=== PATIENT | female | born 1945 | race Caucasian/White ===

== ENCOUNTER 2016-12-01 12:40 | Emergency (ER) | payer OTHER ==
[2016-12-01 12:49] VITALS: TEMP 98.6
--- NOTE | 2016-12-01 13:06 | EDPHY ---
H & P Time Seen by Provider: 12/01/16 12:52 HPI/ROS: CHIEF COMPLAINT: Lower extremity edema HISTORY OF PRESENT ILLNESS: This patient is a 71 year old woman with HTN and peripheral edema presenting with 3-4 days of increased bilateral lower extremity edema. The patient has been traveling in the car from [place] 2 days ago and ran out of her HCTZ 5 days ago. She was first prescribed the HCTZ two months ago. She typically has worse edema in the left leg compared to the right because of left knee replacement and venous stasis. The HCTZ improved her lower extremity edema in the past. Requesting Lasix because it usually works faster. Additionally, the patient has a longstanding history of shortness of breath, which has been somewhat worse the last 2-3 days. She reports associated 13 pound weight gain. Symptoms are mild-moderate in severity. She denies chest pain. REVIEW OF SYSTEMS: Constitutional: No fever, no chills Eyes: No visual changes ENT: sore throat the last few days Respiratory: No cough, worsening shortness of breath Cardiac: No chest pain Gastrointestinal: No nausea, no vomiting, no abdominal pain Genitourinary: No hematuria, no dysuria Musculoskeletal: Bilateral lower extremity edema. 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 [place] Smoking Status: Never smoked Physical Exam: General Appearance: Alert, obese, no distress Eyes: Pupils equal and round, no conjunctival pallor or injection ENT, Mouth: Mucous membranes moist, mild pharyngeal erythema Neck: Normal inspection Respiratory: Lungs are clear to auscultation Cardiovascular: Regular rate and rhythm Gastrointestinal: Abdomen is soft and non- tender Neurological: A&O, nonfocal, normal gait Skin: Warm and dry, no rash Extremities: Nontender, 3+ bilateral lower extremity edema Psychiatric: Mood and affect normal Constitutional: Initial Vital Signs Temperature (C) 37.0 C 12/01/16 12:45 Heart Rate 95 12/01/16 12:45 Respiratory Rate 20 12/01/16 12:45 Blood Pressure 146/82 H 12/01/16 12:45 O2 Sat (%) 95 12/01/16 12:45 O2 Delivery Mode Room Air Allergies/Adverse Reactions: Penicillins Allergy (Severe, Verified 01/20/16 19:39) Anaphylaxis alcohol [From Mastisol Adhesive] Allergy (Intermediate, Verified 01/20/16 19:39) Rash cefuroxime axetil [From Ceftin] Allergy (Intermediate, Verified 01/20/16 19:39) Hives gum mastic [From Mastisol Adhesive] Allergy (Intermediate, Verified 01/20/16 19: 39) Rash methyl salicylate [From Mastisol Adhesive] Allergy (Intermediate, Verified 01/19 19:39) Rash storax [From Mastisol Adhesive] Allergy (Intermediate, Verified 01/20/16 19:39) Rash fentanyl [Fentanyl] Adverse Reaction (Intermediate, Verified 05/13/15 14:46) Other-Enter Comments TERAMYCIN Allergy (Severe, Uncoded 05/13/15 14:46) Anaphylaxis Home Medications: Medication Instructions Recorded Aspirin [Aspirin 81mg (OTC)] 162 mg PO DAILY 05/15/13 DULoxetine [Cymbalta] 120 mg PO DAILY 05/15/13 Fluticasone Propionate [Flovent 2 puffs IH BID 05/15/13 Hfa] Lansoprazole [Prevacid] 15 mg PO 05/15/13 Levothyroxine [Synthroid] 175 mcg PO DAILY06 05/15/13 Lisinopril/Hctz 20/12.5MG 1 ea PO DAILY 05/15/13 [Zestoretic/Prinzide] Simvastatin 10 mg PO 05/15/13 Warfarin Sodium [Coumadin 5MG (RX)] 5 mg PO DAILY 05/15/13 buPROPion SR [Wellbutrin Sr] 150 mg PO 05/15/13 Docusate Sodium [Colace 100 MG (*)] 100 mg PO BID #30 cap 01/14/14 CeleBREX 05/13/15 Proair Hfa Icu (RX) 05/13/15 traMADOL 05/13/15 Furosemide [Lasix 40 MG (*)] 40 mg PO DAILY #4 tab 12/01/16 Potassium Cl [Klor-Con 20 meq (*)] 20 meq PO DAILY #4 tab 12/01/16 Medical Decision Making ED Course/Re-evaluation: This patient presents with lower extremity edema and shortness of breath, onset after running out of HCTZ this week. There is bilateral 2+ lower extremity edema on exam. I discussed diuresis with Lasix and refilling her prescription for HCTZ. However, the patient is confused about her medications and does not know what dose of HCTZ she takes. Instead, I will prescribe a short course of Lasix. I have advised for the patient to follow up with Dr. Box for re-check and to refill her HCTZ prescription. ISTAT ordered to check electrolytes. I do not feel that further testing is indicated. ISTAT potassium is 3.9. Differential Diagnosis: includes though not limited to hypoxia, pulm edema, ACS, ARF, DVT - Data Points Medications Given: Discontinued Medications Furosemide (Lasix) 40 mg PO EDNOW ONE Stop: 12/01/16 13:10 Last Admin: 12/01/16 13:22 Dose: 40 mg Departure - Departure Disposition: Home, Routine, Self-Care Clinical Impression: Edema of both legs Condition: Good Instructions: Leg Edema (ED) Additional Instructions: Take the Lasix as prescribed. Follow up with Dr. Box this week. He can refill your HCTZ prescription. Return for worsening symptoms, increased edema, shortness of breath, chest pain, or other concerns. Referrals: Choco Box MD [Medical Doctor] - As per Instructions Prescriptions: Furosemide [Lasix 40 MG (*)] 40 mg PO DAILY #4 tab Potassium Cl [Klor-Con 20 meq (*)] 20 meq PO DAILY #4 tab Report Scribed for: Margie Thompson Report Scribed by: Patricia Branham Date of Report: 12/01/16 Time of Report: 12:58 Physician Review and Approval Statement: 12/01/16 12:59 Portions of this note were transcribed by a medical art therapist. I personally performed a history, physical exam, medical decision making, and confirmed accuracy of information the transcribed note.
[2016-12-01] MEDS ORDERED: FUROSEMIDE 40 MG TAB PO ONE (13:09)
[2016-12-01] MEDS ORDERED: FUROSEMIDE 40 MG TAB ONE (13:20)
[2016-12-01 13:56] VITALS: BP 161/79; PULSE 92; RESP 18; O2SAT 92
== END 2016-12-01 13:57 | disposition home or self-care (01) ==
DX: R60.0 Localized edema (principal); I10 Essential (primary) hypertension; Z79.82 Long term (current) use of aspirin; Z79.01 Long term (current) use of anticoagulants
CPT/HCPCS: 82947-QW

== ENCOUNTER → 2016-12-13 | Outpatient (CLI) | payer OTHER | LOC: BHFA 13:30 | PROVIDERS: ATTEND Internal Medicine Cardiovascular Disease | DX: I25.10 Atherosclerotic heart disease of native coronary artery without angina pectoris (principal) | CPT/HCPCS: 78452; 93017; A9500; J2785 ==

== ENCOUNTER → 2017-01-08 | Outpatient (CLI) | payer OTHER | LOC: FCPNEURO 23:12 | PROVIDERS: ATTEND Psychiatry & Neurology Sleep Medicine | DX: G47.33 Obstructive sleep apnea (adult) (pediatric) (principal) ==

== ENCOUNTER 2017-04-15 16:07 | Observation (INO) | payer OTHER ==
[2017-04-15] MEDS ORDERED: ASPIRIN 81 MG CHEWABLE TAB PO ONE (16:23)
[2017-04-15] MEDS ORDERED: ASPIRIN 81 MG CHEWABLE TAB ONE (16:26)
[2017-04-15] MEDS ORDERED: NS 1,000 ML IV ONE (16:38)
[2017-04-15] MEDS ORDERED: NITROGLYCERIN 0.4 MG BTL SL ONE (16:42)
[2017-04-15] MEDS: NITROGLYCERIN 0.4 MG BTL SL PRN ×3 (16:42→17:02)
[2017-04-15 16:45] LABS: % IMMATURE GRANULYOCYTES 0.1 % (0.0-1.1); ABSOLUTE IMMATURE GRANULOCYTES 0.01 10^3/uL (0.00-0.10); ADD DIFF? NO; ADD MORPH? NO; ADD SCAN? NO; ATYPICAL LYMPHOCYTE FLAG 0 (0-99); FRAGMENT RBC FLAG 0 (0-99); HEMATOCRIT 47.5 % (38.0-47.0); HEMOGLOBIN 15.8 g/dL (12.6-16.3); LEFT SHIFT FLG 0 (0-99); LIPEMIA HEMOLYSIS FLAG 80 (0-99); MEAN CELL HEMOGLOBIN 29.6 pg (27.9-34.1); MEAN CELL HEMOGLOBIN CONCENTR. 33.3 g/dL (32.4-36.7); MEAN PLATELET VOLUME 11.3 fL (8.7-11.7); PLATELET CLUMPS FLAG 0 (0-99); PLATELET COUNT 295 10^3/uL (150-400); RED BLOOD CELL COUNT 5.34 10^6/uL (4.18-5.33); RED CELL DISTRIBUTION WIDTH 13.4 % (11.5-15.2)
[2017-04-15 16:54] LABS: INR 2.84 (0.83-1.16); PROTIME(PATIENT) 29.7 SEC (12.0-15.0)
[2017-04-15 16:55] LABS: APTT 46.1 SEC (23.0-38.0)
--- NOTE | 2017-04-15 16:55 | EDPHY ---
H & P Stated Complaint: chest pain since this am, back pain Time Seen by Provider: 04/15/17 16:22 HPI/ROS: This patient was brought in by her by private vehicle for chest pain. She explains that for the past 2 weeks she has had chest pain with exertion while walking associated with dyspnea on exertion. However she has had no sustained episodes of chest pain until today starting at mid morning- approximately 6 hours prior to arrival onset at rest substernal ache 2 to 3/10 currently 5/10 at peak intensity associated with back pain that is currently 5/ 10. Prior to the past 2 weeks she has never experienced this chest pain before. She states that it feels differently than the pleuritic pain she had from her pulmonary embolism. No pleuritic component to this pain. No clear exacerbating or alleviating factors for today's pain. She tried a heating pad on her back without change in the pain and came in for evaluation. She has more dyspnea on exertion than usual today but no dyspnea at rest. ROS: Constitutional: No fevers or chills. She does have some fatigue. HEENT: She has had occasional right parietal headaches over the past 2 weeks but does not have 1 currently. She states he has had except mild. Pulmonary: As per HPI. No coughing. No pleuritic pain. Cardiovascular: No heart palpitations. No lower extremity swelling. Endocrine: No diaphoresis. No polyps your or polydipsia. GI: No nausea vomiting or abdominal pain. : No complaints Integumentary: No rash pallor Neuro: No numbness tingling or focal weakness Complete review of symptoms is otherwise negative. Source: Patient Exam Limitations: No limitations - Personal History Tetanus Vaccine Date: within 10 years - Medical/Surgical History Hx Asthma: Yes Hx Chronic Respiratory Disease: No Hx Diabetes: No Hx Cardiac Disease: Yes Hx Renal Disease: No Hx Cirrhosis: No Hx Alcoholism: No Hx HIV/AIDS: No Hx Splenectomy or Spleen Trauma: No Other PMH: diverticulitis, high cholesterol, blood thinning disorder (factor V leiden), depression, HTN, left knee replacement, gallbladder removal, appendectomy, hysterectomy, sweat gland removal, tonsilectomy, Left leg DVT, bilateral PE, hypothyroidism, heart palpitations, gastric bipass March 2017, sleep apnea - Family History Significant Family History: Heart disease (Patient's mother of an SD at age 63 and her father of an SD at age 58.) - Social History Smoking Status: Never smoked Alcohol Use: Rarely Drug Use: None - Physical Exam Exam: Vital signs are notable for mild hypoxia ranging from 90s 93% on room air. Other vitals are normal. General Appearance: Pleasant obese 72-year-old female Alert, no distress. Eyes: Pupils equal and round no pallor or injection. ENT, Mouth: Mucous membranes moist. Respiratory: There are no retractions, lungs are clear to auscultation. Cardiovascular: Regular rate and rhythm with 3/6 holosystolic murmur. No JVD. No peripheral edema. Patient does have right leg tenderness-mild with no associated swelling. Gastrointestinal: Obese, Abdomen is soft and nontender, no masses, bowel sounds normal. Back: Patient has mild right CVA tenderness versus right muscular lumbar tenderness although she admits that palpation to the area does not entirely reproduces her symptoms. Neurological: GCS 15 with no focal deficits. Skin: Warm and dry, no rashes. Musculoskeletal: Neck is supple nontender. Extremities are symmetrical, full range of motion. Psychiatric: Mood and affect normal. DIFFERENTIAL DIAGNOSIS: After history and physical exam differential diagnosis was considered for SD, acute coronary syndrome, GERD with esophageal spasm, pulmonary embolism, pneumonia, pneumothorax, aortic dissection, aortic aneurysm , musculoskeletal pain, GERD Constitutional: Initial Vital Signs Temperature (C) 36.5 C 04/15/17 16:20 Heart Rate 95 04/15/17 16:20 Respiratory Rate 18 04/15/17 16:20 Blood Pressure 118/69 04/15/17 16:20 O2 Sat (%) 93 04/15/17 16:20 O2 Delivery Mode Room Air O2 (L/minute) 2 Allergies/Adverse Reactions: Penicillins Allergy (Severe, Verified 04/15/17 16:24) Anaphylaxis alcohol [From Mastisol Adhesive] Allergy (Intermediate, Verified 04/15/17 16:24) Rash cefuroxime axetil [From Ceftin] Allergy (Intermediate, Verified 04/15/17 16:24) Hives gum mastic [From Mastisol Adhesive] Allergy (Intermediate, Verified 04/15/17 16: 24) Rash methyl salicylate [From Mastisol Adhesive] Allergy (Intermediate, Verified 04/15 16:24) Rash storax [From Mastisol Adhesive] Allergy (Intermediate, Verified 04/15/17 16:24) Rash fentanyl [Fentanyl] Adverse Reaction (Intermediate, Verified 04/15/17 16:24) Other-Enter Comments TERAMYCIN Allergy (Severe, Uncoded 04/15/17 16:24) Anaphylaxis Home Medications: Medication Instructions Recorded Aspirin [Aspirin 81mg (OTC)] 162 mg PO DAILY 05/15/13 DULoxetine [Cymbalta] 120 mg PO DAILY 05/15/13 Levothyroxine [Synthroid] 175 mcg PO DAILY06 05/15/13 Lisinopril/Hctz 20/12.5MG 1 ea PO DAILY 05/15/13 [Zestoretic/Prinzide] Simvastatin 10 mg PO 05/15/13 Warfarin Sodium [Coumadin 5MG (RX)] 5 mg PO DAILY 05/15/13 buPROPion SR [Wellbutrin Sr] 150 mg PO 05/15/13 Docusate Sodium [Colace 100 MG (*)] 100 mg PO BID #30 cap 01/14/14 CeleBREX 05/13/15 Proair Hfa Icu (RX) 05/13/15 traMADOL 05/13/15 Medical Decision Making - Diagnostics EKG Interpretation: 12 lead EKG performed at 4:16 p.m. reveals sinus rhythm at 96 with a left bundle branch block. Intervals: P R of 192, QRS of 148, QTC of 501 [place]: P of 59, QRS of-14, T of 123 overall assessment sinus rhythm with left bundle branch block. When comparing this to an EKG dated January 20, 2016 the patient is noted to have a left bundle branch block at that time as well. I do not appreciate significant interval change from the prior EKG A repeat EKG was performed at 5:44 p.m.-indication resolution chest pain with nitroglycerin, evaluate for dynamic change from 1st EKG Sinus rhythm at 84 Intervals: P R of 2 4, QRS of 140, QTC of 507 [place]: P of 64, QRS of-15, T of 96 Overall assessment: Sinus rhythm with left bundle branch block, no dynamic changes appreciated from 1st EKG Imaging Results: Imaging Impressions Chest X-Ray 04/15/17 17:07 Impression: Negative. ED Course/Re-evaluation: IV, supplemental on nasal cannula O2 for O2 sat at around 90% during my exam with improvement to the low to mid 90s. Aspirin 241 to supplement the baby aspirin she took at home SL nitroglycerin with improvement in her chest discomfort - after 3 similar nitroglycerines chest pain and back pain resolved. On the 3rd some nitroglycerin she became hypotensive to 80 systolic but was not symptomatic and this reversed quickly with normal saline bolus. 0.5 inch nitropaste applied the patient remained stable in free of chest pain for the duration of her course. I spoke with Dr. Yuliya Gongora-deaf interpreter reconstructive dentist for [facility] at 1755 regarding this patient and she agrees with plan for admission. They will consult. I spoke with Dr. Madonna Rogel-hospitalist at 6:00 p.m. who accepts this patient for admission to [facility] Patient developed a different chest discomfort while remaining stable with vital signs described as acid reflux sensation treated with Maalox and Levsin with improvement. With 0.5 inch nitropaste her systolic pressure was in the 90s so we DC the pace given resolution of her chest pain. Her systolic pressure improved to the low 100s after the pace with the seed in she had no further recurrent symptoms while here in the emergency department. Discussion: Patient presents with chest pain concerning for potential angina with risk factors of strong family history of coronary disease and age with chest pain and dyspnea on exertion improved with nitroglycerin. 1st troponin is normal. She is therapeutic with an INR of 2.8 to not think she has a PE nor did she have symptoms at are consistent with her prior PEs. No pneumonia or pneumothorax on her chest x-ray, no other concerning findings. The time of transfer patient is stable for admission for serial cardiac enzymes and cardiology consult. - Data Points Laboratory Results: Laboratory Results 04/15/17 16:24 04/15/17 16:24 04/15/17 04/15/17 04/15/17 17:35 16:24 16:24 WBC RBC Hgb Hct MCV MCH MCHC RDW Plt Count MPV Neut % (Auto) Lymph % (Auto) [place] % (Auto) Eos % (Auto) Baso % (Auto) Nucleat RBC Rel Count Absolute Neuts (auto) Absolute Lymphs (auto) Absolute Monos (auto) Absolute Eos (auto) Absolute Basos (auto) Absolute Nucleated RBC Immature Gran % Immature Gran # PT INR APTT D-Dimer Sodium 138 mEq/L mEq/L (134-144) Potassium 3.6 mEq/L mEq/L (3.5-5.2) Chloride 99 mEq/L mEq/L (97-110) Carbon Dioxide 27 mEq/l mEq/l (22-31) Anion Gap 12 mEq/L mEq/L (8-16) BUN 15 mg/dL mg/dL (7-23) Creatinine 0.8 mg/dL mg/dL (0.6-1.0) Estimated GFR > 60 Glucose 107 mg/dL H mg/dL (70-100) Calcium 10.3 mg/dL mg/dL (8.5-10.4) Troponin I < 0.012 ng/mL ng/mL (0-0.034) NT-Pro-B Natriuret Pep 42 pg/mL pg/mL (0-125) Urine Color YELLOW Urine Appearance HAZY Urine pH 6.5 (5.0-7.5) Ur Specific [place] 1.010 (1.002-1.030) Urine Protein NEGATIVE (NEGATIVE) Urine Ketones NEGATIVE (NEGATIVE) Urine Blood NEGATIVE (NEGATIVE) Urine Nitrate NEGATIVE (NEGATIVE) Urine Bilirubin NEGATIVE (NEGATIVE) Urine Urobilinogen 0.2 EU EU (0.2-1.0) Ur Leukocyte Esterase NEGATIVE (NEGATIVE) Urine Glucose NEGATIVE (NEGATIVE) 04/15/17 04/15/17 16:24 16:24 WBC 7.01 10^3/uL 10^3/uL (3.80-9.50) RBC 5.34 10^6/uL H 10^6/uL (4.18-5.33) Hgb 15.8 g/dL g/dL (12.6-16.3) Hct 47.5 % H % (38.0-47.0) MCV 89.0 fL fL (81.5-99.8) MCH 29.6 pg pg (27.9-34.1) MCHC 33.3 g/dL g/dL (32.4-36.7) RDW 13.4 % % (11.5-15.2) Plt Count 295 10^3/uL 10^3/uL (150-400) MPV 11.3 fL fL (8.7-11.7) Neut % (Auto) 62.7 % % (39.3-74.2) Lymph % (Auto) 23.8 % % (15.0-45.0) [place] % (Auto) 10.8 % % (4.5-13.0) Eos % (Auto) 1.7 % % (0.6-7.6) Baso % (Auto) 0.9 % % (0.3-1.7) Nucleat RBC Rel Count 0.0 % % (0.0-0.2) Absolute Neuts (auto) 4.39 10^3/uL 10^3/uL (1.70-6.50) Absolute Lymphs (auto) 1.67 10^3/uL 10^3/uL (1.00-3.00) Absolute Monos (auto) 0.76 10^3/uL 10^3/uL (0.30-0.80) Absolute Eos (auto) 0.12 10^3/uL 10^3/uL (0.03-0.40) Absolute Basos (auto) 0.06 10^3/uL 10^3/uL (0.02-0.10) Absolute Nucleated RBC 0.00 10^3/uL 10^3/uL (0-0.01) Immature Gran % 0.1 % % (0.0-1.1) Immature Gran # 0.01 10^3/uL 10^3/uL (0.00-0.10) PT 29.7 SEC H SEC (12.0-15.0) INR 2.84 H (0.83-1.16) APTT 46.1 SEC H SEC (23.0-38.0) D-Dimer < 0.27 ug/mLFEU ug/mLFEU (0.00-0.50) Sodium Potassium Chloride Carbon Dioxide Anion Gap BUN Creatinine Estimated GFR Glucose Calcium Troponin I NT-Pro-B Natriuret Pep Urine Color Urine Appearance Urine pH Ur Specific [place] Urine Protein Urine Ketones Urine Blood Urine Nitrate Urine Bilirubin Urine Urobilinogen Ur Leukocyte Esterase Urine Glucose Departure - Departure Disposition: [facility] Clinical Impression: Acute chest pain Condition: Fair
[2017-04-15] MEDS ORDERED: NITROGLYCERIN 2% 1 GM PACKET TP ONE (17:01)
[2017-04-15 17:02] LABS: ANION GAP 12 mEq/L (8-16); CALCIUM 10.3 mg/dL (8.5-10.4); CARBON DIOXIDE 27 mEq/l (22-31); CHLORIDE 99 mEq/L (97-110); CREATININE 0.8 mg/dL (0.6-1.0); GLOMERULAR FILTRATION RATE > 60; GLUCOSE 107 mg/dL (70-100); POTASSIUM 3.6 mEq/L (3.5-5.2); SODIUM 138 mEq/L (134-144)
--- NOTE | 2017-04-15 17:05 | CPEKG ---
Heart Rate: 96 RR Interval: 625 P-R Interval: 192 QRSD Interval: 148 QT Interval: 396 QTC Interval: 501 P [place]: 59 QRS [place]: -14 T Wave [place]: 123 EKG Severity - ABNORMAL ECG - EKG Impression: SINUS RHYTHM EKG Impression: PROBABLE LEFT ATRIAL ABNORMALITY EKG Impression: LEFT BUNDLE BRANCH BLOCK Electronically Signed By: Jose De Jesus Chatterjee 17-Apr-2017 17:19:57
[2017-04-15 17:09] LABS: TROPONIN I < 0.012 ng/mL (0-0.034)
[2017-04-15] MEDS ORDERED: NITROGLYCERIN 2% 1 GM PACKET ONE (17:45)
--- NOTE | 2017-04-15 17:47 | CPEKG ---
Heart Rate: 84 RR Interval: 714 P-R Interval: 204 QRSD Interval: 148 QT Interval: 428 QTC Interval: 507 P [place]: 64 QRS [place]: -15 T Wave [place]: 96 EKG Severity - ABNORMAL ECG - EKG Impression: SINUS RHYTHM EKG Impression: PROBABLE LEFT ATRIAL ABNORMALITY EKG Impression: LEFT BUNDLE BRANCH BLOCK Electronically Signed By: Jose De Jesus Chatterjee 17-Apr-2017 17:19:46
[2017-04-15 17:50] LABS: COLOR YELLOW; LEUKOCYTE ESTERASE,URINE NEGATIVE (NEGATIVE); NITRITE,URINE NEGATIVE (NEGATIVE); PH,URINE 6.5 (5.0-7.5)
[2017-04-15] MEDS ORDERED: HYOSCYAMINE SULFATE 0.125 MG TAB PO PRN (18:32)
[2017-04-15] MEDS ORDERED: MAG HYDROX/AL HYDROX/SIMETH 30 ML UDCUP ONE (18:35)
[2017-04-15] MEDS ORDERED: HYOSCYAMINE SULFATE 0.125 MG TAB ONE (18:36)
[2017-04-15] MEDS: MAG HYDROX/AL HYDROX/SIMETH 30 ML UDCUP PO PRN (18:37)
[2017-04-15] MEDS ORDERED: ONDANSETRON 4 MG/2 ML VIAL IVP PRN (21:27)
[2017-04-15] MEDS ORDERED: ACETAMINOPHEN 325 MG TAB PO PRN (21:27)
--- NOTE | 2017-04-15 22:18 | GHP ---
[f rep st] HISTORY AND PHYSICAL DATE OF ADMISSION: 04/15/2017 CHIEF COMPLAINT: Chest pain. HISTORY: The patient is a 72-year-old female, who has had new onset of chest pain over the last 2 w eeks. She had significant dyspnea on exertion. Chest pain onset is usually at rest, and episode th at came on today was much more severe than it has been recently. Today, chest pain was 6/10. She d escribed it as to the right of the sternum radiating to her back, dull ache. She has never had ches t pain like this before. This is different than the chest pain she has had with pulmonary emboli, a nd the pain is nonpleuritic. She sees Dr. Clarence Box as an outpatient. She recently had an outpa tient stress test that was negative. PAST MEDICAL HISTORY: 1. Pulmonary embolus and DVT with Factor 5 Leiden. 2. Left bundle branch block. 3. Hypertension. 4. Hyperlipidemia. 5. Obstructive sleep apnea on CPAP. 6. Morbid obesity, status post gastric bypass surgery 1 month ago. Gastric sleeve performed at [facility]. PAST SURGICAL HISTORY: Also includes appendectomy, cholecystectomy, hysterectomy. MEDICATIONS: Please see computer record for full detailed list. ALLERGIES: Penicillin, cefuroxime. SOCIAL HISTORY: No smoking. No alcohol. She lives with her and daughter. REVIEW OF SYSTEMS: Complete review of systems obtained. Review of systems is negative regarding co nstitutional, HEENT, GI, pulmonary, cardiovascular, GI, , hematology, skin, musculoskeletal, endoc rine, psych, except for positives as in HPI. FAMILY HISTORY: Her mother of a massive heart attack at age 65. PHYSICAL EXAMINATION: GENERAL: Well-developed, well-nourished female, in no acute distress. VITAL SIGNS: Temperature is 36.5, pulse 84, blood pressure 132/72, saturating 92% on room air. EYES: N ormal conjunctivae. Pupils equal, round, reactive to light. ENT: Normal ears, nose. Hearing intac t. Normal teeth. Oropharynx moist. NECK: Trachea midline. No thyromegaly. CHEST: Normal respi ratory effort. Lungs clear to auscultation bilaterally. CARDIOVASCULAR: Regular rate, regular rhyt hm. No murmur. No extremity edema. ABDOMEN: Soft, nontender. No hepatosplenomegaly. SKIN: War m, dry, intact without rash. MUSCULOSKELETAL: No cyanosis or clubbing. Strength 5/5 upper and low er extremities. NEUROLOGIC: Cranial nerves intact. Normal sensation to light touch. PSYCH ASSESS MENT: Alert and oriented x3. Normal affect. Normal judgment and insight. Normal memory. LABORATORY DATA: White count 7.01, hematocrit 47.5, platelets 295, sodium 138, potassium 3.6, chlor emelia 99, bicarb 27, BUN 15, creatinine 0.8, glucose 107. Troponins negative. BNP is 42. D-dimer is negative. INR is 2.84. Urinalysis is negative. EKG, viewed by me, and my personal interpretation is sinus rhythm with left bundle branch block. Ch est x-ray is negative. ASSESSMENT/PLAN: 1. Chest pain. Risk factors include hypertension, hyperlipidemia, and family history. She recentl y had an outpatient stress test. There is likely no need to repeat it. Cardiology will consult in the morning. Could consider cardiac catheterization given her ongoing symptoms, and the possibility of a false negative stress test. We will keep her n.p.o. After midnight, and await their opinion i n the morning. 2. Morbid obesity. BMI 45. Status post recent gastric sleeve surgery 1 month ago. I do not think this is contributing to her current presentation of chest pain. 3. Obstructive sleep apnea. Continue CPAP at night. 4. History of pulmonary embolus and DVT with Factor 5 Leiden. Her INR is therapeutic, and she has a negative D-dimer. I think clinically this does not sound concerning for recurrence of pulmonary e mbolus. DVT PROPHYLAXIS: She is low risk given her chronic anticoagulation. CODE STATUS: Full. ADMISSION STATUS: We will admit to observation. Anticipate discharge home tomorrow if her chest pa in evaluation is unremarkable. /[id number]/MODL
[2017-04-15] MEDS ORDERED: PRAVASTATIN SODIUM 20 MG TAB PO ONE (23:00)
[2017-04-16] MEDS: MAG HYDROX/AL HYDROX/SIMETH 30 ML UDCUP PO PRN (01:02)
[2017-04-16] MEDS ORDERED: LEVOTHYROXINE 175 MCG TAB PO SCH (06:00)
[2017-04-16 06:29] LABS: CHOLESTEROL 115 mg/dL (140-220); CHOLESTEROL/HDL RATIO 2.67 RATIO (1.00-4.44); HIGH DENSITY LIPOPROTEIN 43 mg/dL (40-85); LDL/HDL RATIO 1.19 RATIO (1.00-3.22); LOW DENSITY LIPOPROTEIN 51 mg/dL (80-100); NON-HIGH DENSITY LIPOPROTEIN 72 mg/dL (90-129); TRIGLYCERIDE 109 mg/dL (35-135); VERY LOW DENSITY LIPOPROTEINS 21 mg/dL (8-25)
[2017-04-16 06:30] LABS: INR 2.6 (0.83-1.16); PROTIME(PATIENT) 28.1 SEC (12.0-15.0)
[2017-04-16 06:41] LABS: TROPONIN I < 0.012 ng/mL (0-0.034)
[2017-04-16] MEDS ORDERED: ASPIRIN EC 325 MG TAB PO SCH (09:00)
[2017-04-16] MEDS ORDERED: buPROPion XL 150 MG TAB PO SCH (09:00)
[2017-04-16] MEDS ORDERED: ASPIRIN 81 MG CHEWABLE TAB PO SCH (09:00)
--- NOTE | 2017-04-16 09:29 | CPEKG ---
Heart Rate: 87 RR Interval: 690 P-R Interval: 208 QRSD Interval: 150 QT Interval: 424 QTC Interval: 510 P [place]: 71 QRS [place]: -4 T Wave [place]: 105 EKG Severity - ABNORMAL ECG - EKG Impression: SINUS RHYTHM EKG Impression: LEFT BUNDLE BRANCH BLOCK Electronically Signed By: Jose De Jesus Chatterjee 17-Apr-2017 17:19:38
[2017-04-16 11:56] VITALS: RESP 20; TEMP 97.8
[2017-04-16] MEDS ORDERED: REGADENOSON 0.4 MG/5 ML SYR IVP ONE (12:47)
--- NOTE | 2017-04-16 12:51 | GCON ---
[f rep st] CONSULTATION ADMITTING DIAGNOSIS: Chest pain. We are asked by the hospitalist to further evaluate the etiology of her chest pain. HISTORY OF PRESENT ILLNESS: This is a 72-year-old female who has noted chest pain over the past 2 weeks. She has noted shortness of breath with exertion. She describes the pain as epigastric that radiates up the sternum. It comes and goes. However, on day of admission it was especially severe. She rated the chest discomfort as a 6/10 on admission. She had recent gastric bypass surgery 3 to 4 weeks ago and performed at [facility] in [place]. She felt she had done well prior to the past. Two weeks. She did have a Lexiscan nuclear stress test the end of November 2016 prior to her surgery, showing no significant reversible defects suggestive of ischemia. There were no fixed defects suggestive of an infarct. Her ejection fraction at that time was 64%. This was felt to be a normal study with no cardiac ischemia. Of note, she had had a previous nuclear stress test in June of 2016, showing a defect to the anterior septal wall which was not noted at December 13, 2016 test. At time of visit, she is up in a chair. She reports having some epigastric discomfort this morning. She is a patient of Dr. Clarence Box as an outpatient, with [facility]. Dr. Box did stop in to visit with her this morning. She has no further complaints at this time. PAST HISTORY: Significant for asthma, coronary artery disease, Factor V Leiden deficiency, GERD, hypertension, hyperlipidemia, hypothyroidism, obstructive sleep apnea using CPAP. PAST SURGICAL HISTORY: Appendectomy, cholecystectomy, excision of lesion of sweat glands of the axilla, hysterectomy, knee replacement, and most recent, gastric bypass surgery. MEDICATIONS: Refer to computer record list for complete record of medications. ALLERGIES: Penicillin, cefuroxime. FAMILY HISTORY: She reports that her mother of a heart attack at age 65. Her mother had diabetes type 2 and hypertension. SOCIAL HISTORY: She does not use alcohol nor tobacco. She lives at home with her . REVIEW OF SYSTEMS: Complete 10-point review of systems done. Negative except that in the HPI. PHYSICAL EXAM: CONSTITUTIONAL: Blood pressure 126/83, heart rate 86 and regular, respiratory rate 18, oxygen per nasal prongs at 2 L. APPEARANCE: Well -nourished obese lady in no distress. EYES: Normal conjunctivae. Pupils are equal and round. ENT: Ears and nose appear normal. Hearing is intact. Oropharynx is moist. NECK: Trachea is midline. There is no thyromegaly. CHEST: No respiratory distress. LUNGS: Clear to auscultation. No wheezes, rales, or rhonchi. CARDIAC: Regular rate and rhythm. No murmurs, rubs, or gallops are noted. No peripheral edema. ABDOMEN: Soft and nontender. SKIN: Warm and dry with no redness or rashes noted. MUSCULOSKELETAL: No cyanosis noted. No clubbing. Good cotton stomper strength. NEUROLOGICAL: She is alert and oriented to person, place and time. She has normal affect with good judgment. EKG showed a sinus rhythm with left bundle branch block. PLAN AND RECOMMENDATION: Chest pain: She had a normal nuclear stress test prior to her gastric bypass surgery December 13, 2016, that showed no cardiac ischemia. However, with such a surgery and her family history of her mother having a heart attack at 65, along with hypertension and hyperlipidemia, cardiac etiology for chest pain needs to be further evaluated. Would recommend proceeding with a Lexiscan nuclear stress test to further evaluate for cardiac etiology. This will be arranged to be done yet today. Other considerations would be chest pain related to GERD with recent gastric bypass surgery. She has Factor V Leiden, and has a history of pulmonary emboli; however, her D- dimer is normal. We will continue to follow along and make recommendations based on upcoming nuclear stress test imaging. Thank you for asking us to be part of Megan's care. /[id number]/MODL MTDD
[2017-04-16] MEDS ORDERED: ALBUTEROL 200 PUFFS/18 GM MDI IH PRN (13:05)
--- NOTE | 2017-04-16 14:06 | CPR ---
[f rep st] NONINVASIVE CARDIAC PROCEDURE REPORT DATE OF PROCEDURE: 04/16/2017 PROCEDURE PERFORMED: Nuclear Lexiscan stress test. REASON FOR TEST: Chest pain. FINDINGS: Resting blood pressure 116/90, resting heart rate 92, oxygen saturation 93%. Baseline EK G shows a sinus rhythm with left bundle branch block. Heart rate 92. She is asymptomatic. LEXISCAN PORTION: Lexiscan was injected rapidly, followed by a saline flush. Cardiolite was the in jected, followed by a saline flush. She did develop a mild headache after the infusion. There were no EKG changes. Peak heart rate 104, blood pressure 158/83, oxygen saturation 96%. RECOVERY: She spontaneously recovered. There were no EKG changes. Recovery blood pressure 141/84, heart rate 102, oxygen saturation 96%. She continued to have a headache. Caffeine was given. DISPOSITION: At this time, she currently is stable for nuclear imaging. /[id number]/MODL
[2017-04-16] MEDS ORDERED: MAG HYDROX/AL HYDROX/SIMETH 30 ML UDCUP PO PRN (15:34)
[2017-04-16] MEDS ORDERED: HYOSCYAMINE SULFATE 0.125 MG TAB PO PRN (15:34)
[2017-04-16 15:41] VITALS: BP 122/75; PULSE 91; O2SAT 94
--- NOTE | 2017-04-16 16:46 | PDDCSUM ---
Discharge Summary Discharge Summary: Dates of service 04/15-04/16/17 Discharge dx: # chest pain # morbid obesity # aiden # h/o PE/DVT # factor 5 Leiden Consultations: cardiology Procedures performed: nuc stress test Hospital course by problem: # chest pain: in the setting of recent gastric bypass surgery, ecg with old LBBB unchanged and cxr negative. Appreciate cardiology consultation, they recommended stress test which was performed and unremarkable. Given recent gastric bypass and patient only newly taking PO, query if this is GI in nature. Currently pain free, plans to f/u with her surgeon in the coming week or so. # morbid obesity: s/p recent gastric bypass, as above # aiden: continue cpap # h/o PE/DVT and factor 5 Leiden: with negative d dimer and INR therapeutic makes recurrent PE unlikely, continue warfarin Dc home F/u with PCP, director embalmer and bypass surgeon > 35 minutes spent in dc, more than half in coordination of care
[2017-04-16] MEDS ORDERED: DULoxetine 60 MG CAP PO SCH (17:00)
[2017-04-16] MEDS ORDERED: WARFARIN SODIUM 5 MG TAB PO SCH (21:00)
[2017-04-16] MEDS ORDERED: PRAVASTATIN SODIUM 20 MG TAB PO SCH (21:00)
[2017-04-17] MEDS ORDERED: WARFARIN SODIUM 5 MG TAB PO SCH (21:00)
== END 2017-04-16 17:48 | disposition home or self-care (01) ==
LOC: CED 16:07 → CEDHOLD 18:01 → INTOOBSV 18:01 → F2W 20:19
PROVIDERS: ADMIT Internal Medicine; ATTEND Internal Medicine
DX: R07.9 Chest pain, unspecified (principal); R06.09 Other forms of dyspnea; E66.01 Morbid (severe) obesity due to excess calories; Z68.42 Body mass index [BMI] 45.0-49.9, adult; G47.33 Obstructive sleep apnea (adult) (pediatric); D68.51 Activated protein C resistance; Z86.711 Personal history of pulmonary embolism; Z86.718 Personal history of other venous thrombosis and embolism; Z98.84 Bariatric surgery status; I44.7 Left bundle-branch block, unspecified; E78.5 Hyperlipidemia, unspecified; K21.9 Gastro-esophageal reflux disease without esophagitis; Z79.01 Long term (current) use of anticoagulants; Z82.49 Family history of ischemic heart disease and other diseases of the circulatory system; Z96.652 Presence of left artificial knee joint
CPT/HCPCS: 71010; 78452; 93005; 93017; 96360; 99285; A9500; G0378; J2785; 80048-PO; 81003-PO; 83880-PO; 84484-PO; 85025-PO; 85378-PO; 85610-PO; 85730-PO

== ENCOUNTER 2017-10-25 10:51 | Emergency (ER) | payer OTHER ==
[2017-10-25 11:04] VITALS: PULSE 89
[2017-10-25] MEDS ORDERED: ACETAMINOPHEN 500 MG TAB PO ONE (11:22)
--- NOTE | 2017-10-25 11:26 | EDPHY ---
H & P Time Seen by Provider: 10/25/17 11:03 HPI/ROS: Chief complaint. Flu symptoms HPI. Patient is 72-year-old female with upper respiratory symptoms for about 1 month. She was apparently treated for a sinus infection. Her symptoms have been resolving. However then 2-3 days ago she developed fever and chills and achiness with upper respiratory congestion and sore throat. Nonproductive cough. No vomiting or diarrhea but some abdominal cramping this morning. No urinary symptoms. No known exposure to Infectious Disease. No recent travel. She does not have chest discomfort or shortness of breath with her cough ROS Constitutional. Fever and chills Eyes. no problems with vision ENT. Sore throat and congestion Cardiovascular. no chest pain Respiratory. Cough but no shortness of breath Abdominal. Abdominal cramping this morning but no nausea vomiting or diarrhea . no problems urinating MS. no calf pain/swelling, no neck/back pain, no joint pain Skin. no rash Lymph. no swollen glands Neuro. no headache, no dizziness, no difficulty walking or with speech Past Medical/Surgical History: Past medical history is significant for diverticulitis, dyslipidemia, factor 5 Leiden deficiency on Coumadin, depression, hypertension, cholecystectomy, appendectomy, hysterectomy DVT, hypothyroid, gastric bypass, sleep apnea, palpitations Social History: , nonsmoker, no alcohol Smoking Status: Never smoked Physical Exam: General Appearance: Alert pleasant well-developed female mild distress vital signs significant for temp 37.8 degrees Eyes: Pupils equal and round no pallor or injection. ENT, tympanic membranes are normal. Pharynx slightly injected without exudate. Mucous membranes are moist Respiratory: There are no retractions, lungs are clear to auscultation. Cardiovascular: Regular rate and rhythm. Gastrointestinal: Abdomen is soft and nontender, no masses, bowel sounds normal. Neurological: Awake and alert, sensory and motor exams grossly normal. Skin: Warm and dry, no rashes. Musculoskeletal: Neck is supple nontender. Extremities symmetrical, full range of motion. Psychiatric: Patient is oriented X 3, there is no agitation. Constitutional: Initial Vital Signs Temperature (C) 37.8 C 10/25/17 10:58 Heart Rate 89 10/25/17 10:58 Respiratory Rate 18 10/25/17 10:58 Blood Pressure 127/65 H 10/25/17 10:58 O2 Sat (%) 95 10/25/17 10:58 O2 Delivery Mode Room Air Allergies/Adverse Reactions: oxytetracycline [From Terramycin] Allergy (Severe, Verified 10/25/17 10:57) Anaphylaxis Penicillins Allergy (Severe, Verified 10/25/17 10:57) Anaphylaxis alcohol [From Mastisol Adhesive] Allergy (Intermediate, Verified 10/25/17 10:57) Rash cefuroxime axetil [From Ceftin] Allergy (Intermediate, Verified 10/25/17 10:57) Hives fentanyl [Fentanyl] Allergy (Intermediate, Verified 10/25/17 10:57) Other-Enter Comments gum mastic [From Mastisol Adhesive] Allergy (Intermediate, Verified 10/25/17 10: 57) Rash methyl salicylate [From Mastisol Adhesive] Allergy (Intermediate, Verified 10/25 10:57) Rash storax [From Mastisol Adhesive] Allergy (Intermediate, Verified 10/25/17 10:57) Rash Home Medications: Medication Instructions Recorded Aspirin [Aspirin 81mg (*)] 81 mg PO DAILY 05/15/13 DULoxetine [Cymbalta 60 MG (*)] 120 mg PO DAILY@1700 05/15/13 Levothyroxine [Synthroid 175 mcg 175 mcg PO DAILY06 05/15/13 (*)] Simvastatin 10 mg PO HS 05/15/13 Warfarin Sodium [Coumadin 5MG (*)] 5 mg PO SUTUTH@209905/15/13 Albuterol [Proventil Inhaler HFA 1 - 2 puffs IH Q4H PRN 04/15/17 (*)] Ropinirole HCl [Requip 0.5mg] 0.5 - 1 mg PO HS 04/15/17 Warfarin Sodium [Coumadin 5MG (*)] 2.5 mg PO MOWEFRSA@209904/15/17 buPROPion XL [Wellbutrin 150mg XL] 150 mg PO DAILY 04/15/17 Albuterol Sulfate [ALBUTEROL 1.25 mg IH Q4-6PRN PRN #24 10/25/17 SULFATE 1.25 MG/3 ML] Medical Decision Making - Diagnostics Imaging Results: Imaging Impressions Chest X-Ray 10/25/17 11:23 Impression: Mild bronchitis. No other findings for acute cardiopulmonary abnormality. Chronic findings, as above. Chest x-ray reviewed by me consistent with bronchitis. No evidence for pneumonia. Procedures[facility] Course/Re-evaluation: Re-evaluation at 12:30 p.m.. Patient is stable. The patient, her , and I discussed imaging and lab results. We discussed treatment plan including criteria for return importance of follow-up further evaluation. They expressed understanding and agreement Differential Diagnosis: I thought this would likely be influenza. It is unclear the onset though as the patient has been sick for a month though does seem to be somewhat worse the last 2-3 days. No evidence for pneumonia. Chest x-ray consistent with viral syndrome bronchitis. - Data Points Laboratory Results: Laboratory Results 10/25/17 11:40 10/25/17 11:40 10/25/17 10/25/17 10/25/17 11:41 11:40 11:40 WBC RBC Hgb Hct MCV MCH MCHC RDW Plt Count MPV Neut % (Auto) Lymph % (Auto) Cuming % (Auto) Eos % (Auto) Baso % (Auto) Nucleat RBC Rel Count Absolute Neuts (auto) Absolute Lymphs (auto) Absolute Monos (auto) Absolute Eos (auto) Absolute Basos (auto) Absolute Nucleated RBC Immature Gran % Immature Gran # PT 23.3 SEC H SEC (12.0-15.0) INR 2.13 H (0.83-1.16) Sodium 142 mEq/L mEq/L (135-145) Potassium 4.1 mEq/L mEq/L (3.5-5.2) Chloride 101 mEq/L mEq/L (97-110) Carbon Dioxide 28 mEq/l mEq/l (22-31) Anion Gap 13 mEq/L mEq/L (8-16) BUN 13 mg/dL mg/dL (7-23) Creatinine 0.7 mg/dL mg/dL (0.6-1.0) Estimated GFR > 60 Glucose 104 mg/dL H mg/dL (70-100) Calcium 9.3 mg/dL mg/dL (8.5-10.4) Influenza A,B Rapid NEGATIVE FOR FLU (NEGATIVE) 10/25/17 11:40 WBC 11.55 10^3/uL H 10^3/uL (3.80-9.50) RBC 4.96 10^6/uL 10^6/uL (4.18-5.33) Hgb 14.7 g/dL g/dL (12.6-16.3) Hct 45.0 % % (38.0-47.0) MCV 90.7 fL fL (81.5-99.8) MCH 29.6 pg pg (27.9-34.1) MCHC 32.7 g/dL g/dL (32.4-36.7) RDW 14.2 % % (11.5-15.2) Plt Count 268 10^3/uL 10^3/uL (150-400) MPV 10.2 fL fL (8.7-11.7) Neut % (Auto) 83.0 % H % (39.3-74.2) Lymph % (Auto) 8.0 % L % (15.0-45.0) Cuming % (Auto) 7.3 % % (4.5-13.0) Eos % (Auto) 0.8 % % (0.6-7.6) Baso % (Auto) 0.6 % % (0.3-1.7) Nucleat RBC Rel Count 0.0 % % (0.0-0.2) Absolute Neuts (auto) 9.59 10^3/uL H 10^3/uL (1.70-6.50) Absolute Lymphs (auto) 0.92 10^3/uL L 10^3/uL (1.00-3.00) Absolute Monos (auto) 0.84 10^3/uL H 10^3/uL (0.30-0.80) Absolute Eos (auto) 0.09 10^3/uL 10^3/uL (0.03-0.40) Absolute Basos (auto) 0.07 10^3/uL 10^3/uL (0.02-0.10) Absolute Nucleated RBC 0.00 10^3/uL 10^3/uL (0-0.01) Immature Gran % 0.3 % % (0.0-1.1) Immature Gran # 0.04 10^3/uL 10^3/uL (0.00-0.10) PT INR Sodium Potassium Chloride Carbon Dioxide Anion Gap BUN Creatinine Estimated GFR Glucose Calcium Influenza A,B Rapid Medications Given: Discontinued Medications Acetaminophen (Tylenol) 1,000 mg PO EDNOW ONE Stop: 10/25/17 11:23 Last Admin: 10/25/17 11:27 Dose: 1,000 mg Albuterol/Ipratropium (Duoneb) 3 ml IH EDNOW ONE Stop: 10/25/17 12:30 Last Admin: 10/25/17 12:32 Dose: 3 ml Departure - Departure Disposition: Home, Routine, Self-Care Clinical Impression: Acute bronchitis Qualifiers: Bronchitis organism: unspecified organism Qualified Code(s): J20.9 - Acute bronchitis, unspecified Condition: Good Instructions: Viral Syndrome (ED) Additional Instructions: Drink plenty of fluids and stay hydrated. Albuterol nebulizer every 4-6 hours as needed for breathing and cough. May use [id number] Robitussin to help with cough. Tylenol 1000 mg every 4-6 hours as needed for fever. Return for worsening symptoms. Recheck in 2-3 days if not improving Referrals: Ruma Fuentes, [facility] [Primary Care Provider] - 2-3 days, if not improved Prescriptions: Albuterol Sulfate [ALBUTEROL SULFATE 1.25 MG/3 ML] 1.25 mg IH Q4-6PRN PRN #24 PRN Reason: Short Of Breath/Dyspnea
[2017-10-25 11:57] LABS: PLATELET COUNT 268 10^3/uL (150-400)
[2017-10-25 12:18] LABS: INR 2.13 (0.83-1.16); PROTIME(PATIENT) 23.3 SEC (12.0-15.0)
[2017-10-25] MEDS ORDERED: IPRATROPIUM/ALBUTEROL 3 ML DEYVIAL IH ONE (12:29)
[2017-10-25 12:43] VITALS: TEMP 99.5
[2017-10-25 12:58] VITALS: BP 130/67; RESP 16; O2SAT 94
== END 2017-10-25 12:56 | disposition home or self-care (01) ==
LOC: CED 10:51
DX: J20.9 Acute bronchitis, unspecified (principal); I10 Essential (primary) hypertension; Z79.01 Long term (current) use of anticoagulants; Z79.82 Long term (current) use of aspirin; Z88.0 Allergy status to penicillin
CPT/HCPCS: 71046-PO; 80048-PO; 85025-PO; 85610-PO; 87400-PO

== ENCOUNTER 2018-06-12 14:51 | Emergency (ER) | payer OTHER, MEDICARE ==
--- NOTE | 2018-06-12 15:34 | EDPHY ---
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 The symptoms then came back worse in her upper abdomen and upper back this afternoon. It returned about an hour after eating and board from her epigastric area into her back. This has been associated with some "queasiness"but no vomiting. She denies any associated shortness of breath, fever chills. She has been having the queasiness ongoing for several weeks. She states that her gastric bypass surgeon prescribed her some pills for her abdomen but she has not been taking these because she keeps forgetting and she feels that the queasiness is related to not taking these pills. She denies any dysuria urgency or frequency but states she was recently treated for a vaginal yeast infection. She denies any focal numbness or weakness. She says the symptoms seem to come on about an hour after eating. She says she has had a poor appetite recently. Patient states that her symptoms have somewhat abated since she arrived here. Patient states the symptoms are similar to when she was seen here and admitted to the hospital for cardiac workup about 1 year ago. She had a negative nuclear stress test at that time. REVIEW OF SYSTEMS: As in HPI, and all other systems reviewed and are negative Source: Patient - Personal History Current Tetanus Diphtheria and Acellular Pertussis (TDAP): Yes Tetanus Vaccine Date: 2014 - Medical/Surgical History Hx Asthma: Yes Hx Chronic Respiratory Disease: No Hx Diabetes: No Hx Cardiac Disease: Yes Hx Renal Disease: No Hx Cirrhosis: No Hx Alcoholism: No Hx HIV/AIDS: No Hx Splenectomy or Spleen Trauma: No Other PMH: diverticulitis, high cholesterol, blood thinning disorder (factor V leiden), depression, HTN, left knee replacement, gallbladder removal, appendectomy, hysterectomy, sweat gland removal, tonsilectomy, Left leg DVT, bilateral PE, hypothyroidism, heart palpitations, gastric bypass March 2017, sleep apnea,LBBB,asthma - Social History Smoking Status: Never smoked - Physical Exam Exam: General Appearance: Alert, obese, nontoxic-appearing Head: normocephalic, atraumatic Eyes: Pupils equal and round, reactive to light, no pallor or injection. Mouth: Mucous membranes moist. Oropharynx clear Neck: No bony tenderness, full range of motion Respiratory: Normal, effort, lungs are clear to auscultation. No wheezes, rales or rhonchi. Cardiovascular: Regular rate and rhythm. S1, S2, no murmurs, gallops or rubs appreciated, PT and DP pulses 2+ and equal bilaterally Gastrointestinal: Abdomen is soft with positive diffuse lower abdominal tender , no masses, bowel sounds normal. Back: Mild right CVA tenderness, no bony tenderness Neurological: Awake, alert and oriented x 3, cranial nerves 2-12 intact, no pronator drift, normal gait, Skin: Warm and dry, no rashes. Positive chronic trophic changes on lower legs Musculoskeletal: No deformities or tenderness. Extremities: full range of motion, left greater than right bilateral edema, DP2 + bilat Psychiatric: Patient has normal affect, there is no agitation. Constitutional: Initial Vital Signs Temperature (C) 36.8 C 06/12/18 15:05 Heart Rate 63 06/12/18 15:05 Respiratory Rate 16 06/12/18 15:05 Blood Pressure 158/75 H 06/12/18 15:05 O2 Sat (%) 98 06/12/18 15:05 O2 Delivery Mode Room Air Allergies/Adverse Reactions: oxytetracycline [From Terramycin] Allergy (Severe, Verified 06/12/18 15:03) Anaphylaxis Penicillins Allergy (Severe, Verified 06/12/18 15:03) Anaphylaxis alcohol [From Mastisol Adhesive] Allergy (Intermediate, Verified 06/12/18 15:03) Rash cefuroxime axetil [From Ceftin] Allergy (Intermediate, Verified 06/12/18 15:03) Hives fentanyl [Fentanyl] Allergy (Intermediate, Verified 06/12/18 15:03) Other-Enter Comments gum mastic [From Mastisol Adhesive] Allergy (Intermediate, Verified 06/12/18 15: 03) Rash methyl salicylate [From Mastisol Adhesive] Allergy (Intermediate, Verified 06/12 15:03) Rash storax [From Mastisol Adhesive] Allergy (Intermediate, Verified 06/12/18 15:03) Rash Home Medications: Medication Instructions Recorded Aspirin [Aspirin 81mg (*)] 81 mg PO DAILY 05/15/13 DULoxetine [Cymbalta 60 MG (*)] 120 mg PO DAILY@1700 05/15/13 Levothyroxine [Synthroid 175 mcg 175 mcg PO DAILY06 05/15/13 (*)] Simvastatin 10 mg PO HS 05/15/13 Warfarin Sodium [Coumadin 5MG (*)] 5 mg PO SUTUTH@209905/15/13 Albuterol [Proventil Inhaler HFA 1 - 2 puffs IH Q4H PRN 04/15/17 (*)] Ropinirole HCl [Requip 0.5mg] 0.5 - 1 mg PO HS 04/15/17 Warfarin Sodium [Coumadin 5MG (*)] 2.5 mg PO MOWEFRSA@209904/15/17 buPROPion XL [Wellbutrin 150mg XL] 150 mg PO DAILY 04/15/17 Albuterol Sulfate [ALBUTEROL 1.25 mg IH Q4-6PRN PRN #24 10/25/17 SULFATE 1.25 MG/3 ML] Medical Decision Making - Diagnostics EKG Interpretation: Normal sinus rhythm at a rate of 65 with left bundle branch block which is old. Impression: Abnormal EKG Imaging Results: Imaging Impressions Abdomen/Pelvis CTA 06/12/18 15:30 Impression: 1. Normal caliber minimally atherosclerotic aorta. No dissection or penetrating ulcer. 2. Clear lungs. No pneumothorax or acute pulmonary process. 3. Small hiatal hernia (new since 2014). 4. Stigmata of sleeve gastrectomy. No evidence of perforation or acute gastritis. 5. Suspect low-grade sigmoid diverticulitis. 6. No compression fracture or bone lesion. 7. Bowel pattern within normal limit. No mechanical obstruction or adynamic ileus. Findings discussed with Emergency Department physician, Mayda Waters M.D., on June 12, 2018 at 1635. E:amm Chest/Thorax CTA 06/12/18 15:30 Impression: 1. Normal caliber minimally atherosclerotic aorta. No dissection or penetrating ulcer. 2. Clear lungs. No pneumothorax or acute pulmonary process. 3. Small hiatal hernia (new since 2014). 4. Stigmata of sleeve gastrectomy. No evidence of perforation or acute gastritis. 5. Suspect low-grade sigmoid diverticulitis. 6. No compression fracture or bone lesion. 7. Bowel pattern within normal limit. No mechanical obstruction or adynamic ileus. Findings discussed with Emergency Department physician, Mayda Waters M.D., on June 12, 2018 at 1635. E:amm Imaging: Discussed imaging studies w/ call center recruiter Radiologist ED Course/Re-evaluation: 73-year-old woman with a history of gastric bypass, cholecystectomy appendectomy the presents with epigastric pain radiating to her back and mildly elevated blood pressure but otherwise hemodynamically stable. ECG shows left bundle branch which is old. I reviewed the patient's old records and she was seen for similar presentation approximately 1 year ago and admitted to the hospital at that time for and had a negative cardiac workup. She states that the symptoms resolved after that and she has been well until they recurred again today. She does relate that time course of some of this to not taking the pills her surgeon prescribed for her for her gastric bypass. Patient had a therapeutic INR just 10 days ago. Patient was placed on a wage hand was noted to be left bundle branch block and normal sinus rhythm. Labs were obtained. Given the nature the patient's symptoms and her age I was concerned about aortic dissection as well as intra-abdominal process related to her gastric bypass surgery such as marginal ulcer, or other problems. Therefore CT scan was obtained. Urinalysis was positive for leukocyte esterase and was sent for culture. Given the patient has no urinary symptoms she will not be treated for uterine this time. CT scan showed no evidence of aortic dissection or other acute cause of her symptoms. On re-evaluation the patient was feeling much better. At this point the cause of her symptoms are unclear. I recommended she try taking the pills as her surgeon prescribed before she eats to see if this helps. Since she patient has had some relief from Tums she may take this as well. We discussed return precautions patient will follow up with her primary care physician and her surgeon. - Data Points Laboratory Results: 06/12/18 06/12/18 06/12/18 15:40 15:24 15:22 PT INR POC Sodium 142 mEq/L mEq/L (135-145) POC Potassium 4.0 mEq/L mEq/L (3.3-5.0) POC Chloride 100.0 mEq/L mEq/L (97-110) POC Total CO2 30 mEq/L mEq/L (22-31) POC BUN 11 mg/dL mg/dL (7-23) POC Creatinine 0.9 mg/dL mg/dL (0.6-1.0) POC Glucose 81 mg/dL mg/dL (70-100) POC Calcium 10.1 mg/dL mg/dL (8.5-10.4) POC Total Bilirubin 0.7 mg/dL mg/dL (0.1-1.4) POC GGT 58 IU/L IU/L (5-65) POC AST 141 IU/L H IU/L (14-46) POC ALT 78 IU/L H IU/L (9-52) POC Alk Phosphatase 76 IU/L IU/L (38-126) POC Troponin I 0.00 ng/mL ng/mL (0.00-0.08) POC Total Protein 6.1 g/dL L g/dL (6.3-8.2) POC Albumin 3.1 g/dL L g/dL (3.5-5.0) POC Amylase 33 IU/L IU/L (30-110) Lipase 06/12/18 06/12/18 15:10 15:10 PT 20.7 SEC H SEC (12.0-15.0) INR 1.77 H (0.83-1.16) POC Sodium POC Potassium POC Chloride POC Total CO2 POC BUN POC Creatinine POC Glucose POC Calcium POC Total Bilirubin POC GGT POC AST POC ALT POC Alk Phosphatase POC Troponin I POC Total Protein POC Albumin POC Amylase Lipase 80 IU/L IU/L (23-300) Point of Care Test Results: CBC CBC Collection Date 06/12/18 CBC Collection Time 15:15 WBC 5.8 RBC 4.8 HGB 14.6 HCT 44.7 PLT 244 Neut # 3.7 Neut 64.1 LYMPH # 1.5 LYMPH 26.4 Other WBC # 0.6 Other WBC 9.5 MCV 93.1 Chemistry 06/12/18 06/12/18 06/12/18 15:40 15:24 15:22 POC Sodium 142 mEq/L mEq/L (135-145) POC Potassium 4.0 mEq/L mEq/L (3.3-5.0) POC Chloride 100.0 mEq/L mEq/L (97-110) POC Total CO2 30 mEq/L mEq/L (22-31) POC BUN 11 mg/dL mg/dL (7-23) POC Creatinine 0.9 mg/dL mg/dL (0.6-1.0) POC Glucose 81 mg/dL mg/dL (70-100) POC Calcium 10.1 mg/dL mg/dL (8.5-10.4) POC Total Bilirubin 0.7 mg/dL mg/dL (0.1-1.4) POC GGT 58 IU/L IU/L (5-65) POC AST 141 IU/L H IU/L (14-46) POC ALT 78 IU/L H IU/L (9-52) POC Alk Phosphatase 76 IU/L IU/L (38-126) POC Troponin I 0.00 ng/mL ng/mL (0.00-0.08) POC Total Protein 6.1 g/dL L g/dL (6.3-8.2) POC Albumin 3.1 g/dL L g/dL (3.5-5.0) POC Amylase 33 IU/L IU/L (30-110) Liver Function Tests LFT Collection Date 06/12/18 LFT Collection Time 15:15 Urine Dip Collection Date 06/12/18 Collection Time 15:00 Specific Agency (1.002-1.030) 1.015 PH (5.0-7.5) 6.5 Leukocytes (Negative) Trace Nitrites (Negative) Negative Protein (Negative) Negative Glucose (Negative) Negative Ketones (Negative) Negative Urobilnogen (0.2-1.0 EU) 0.2 Bilirubin (Negative) Negative Blood (Negative) Negative Departure - Departure Disposition: Home, Routine, Self-Care Clinical Impression: Elevated liver enzymes Abdominal pain Qualifiers: Abdominal location: epigastric Qualified Code(s): R10.13 - Epigastric pain Condition: Good Instructions: Acute Abdominal Pain (ED) Additional Instructions: You were seen by Dr. Mayda Waters today. Your evaluation and CT scan did not reveal any serious cause for your symptoms today. The cause for symptoms remain on clear. I recommend the take the pills here gastric bypass surgeon prescribed for you before eating. It is safe to take Tums if these make you feel better. Your liver enzymes were elevated slightly today. Please have these rechecked by her primary care physician in 1-2 weeks. A urine culture is pending and we will contact you if this is positive to start you on antibiotics. Return for any worsening or new concerns. Referrals: Ruma Fuentes, [facility] [Primary Care Provider] - As per Instructions
[2018-06-12] MEDS ORDERED: IOPAMIDOL (ISOVUE 370) 100 ML BTL IV ONE (15:38)
[2018-06-12 16:42] LABS: INR 1.77 (0.83-1.16); PROTIME(PATIENT) 20.7 SEC (12.0-15.0)
[2018-06-12 18:07] VITALS: BP 141/70
== END 2018-06-12 17:15 | disposition home or self-care (01) ==
LOC: CED 14:51
DX: R10.9 Unspecified abdominal pain (principal); R94.5 Abnormal results of liver function studies; M54.9 Dorsalgia, unspecified; E66.9 Obesity, unspecified; Z98.84 Bariatric surgery status; Z68.30 Body mass index [BMI] 30.0-30.9, adult
CPT/HCPCS: 71275; 74174; 99283; Q9967; 80048-PO; 80076-PO; 82150-PO; 84484-PO